=== PATIENT | female | born 1965 | race Caucasian/White ===

== ENCOUNTER 2023-12-19 14:44 | Emergency (ER) | payer OTHER, SELFPAY ==
[2023-12-19 14:54] LABS: Glucose - Point of Care 180 mg/dl (70-99)
[2023-12-19 15:00] VITALS: BP 104/58
[2023-12-19 15:16] VITALS: BMI 29.1
[2023-12-19 15:36] LABS: % Basophils 0.9 % (0-2); % Immature Granulocytes 0.2 % (0-0.5); % Lymphocytes 37.4 % (20.5-51.1); % Neutrophils 45.5 % (42.2-75.2); Absolute Eosinophils 0.2 10^3/uL (0-0.7); Absolute Lymphocytes 1.7 10^3/uL (1.2-3.4); Absolute Monocytes 0.5 10^3/uL (0.1-0.6); Absolute Neutrophils 2.1 10^3/uL (1.4-6.5); Hematocrit 27.7 % (37.0-47.0); Hemoglobin 9.1 g/dL (12.0-16.0); Mean Corp Hgb Conc. 32.9 g/dL (33.0-37.0); Mean Corpuscular Volume 82.2 fL (81.0-99.0); Mean Platelet Volume 10.9 fL (7.4-10.4); Nucleated Red Blood Cells % 0 %; Platelet Count 264 10^3/uL (130-400); Red Blood Cell Count 3.37 10^6/uL (4.20-5.40); Red Cell Dist. Width 13.6 % (11.5-14.5); White Blood Cell Count 4.6 10^3/uL (4.8-10.8)
--- NOTE | 2023-12-19 15:40 | ED.GENMED ---
History of Present Illness
General
Chief Complaint: Dizziness
Time Seen by Provider: 12/19/23 15:07
Travel History
Have you had any contact with someone who has COVID-19?: No
Do you have any symptoms of coronavirus? Fever > 100 degrees, chills, cough, shortness of breath, sore throat, loss of taste or smell, muscle aches, or headache?: No
History of Present Illness
History of Present Illness:
58-year-old female presents to the emergency department for evaluation of dizziness and exertional shortness of breath ongoing for the past 2 to 3 days. States she is felt short of breath for more than the past week with any degree of exertion.
She denies any shortness of breath or chest pain at rest, denies any vision changes, headaches, nausea, or vomiting. She notes that last week her valsartan dosage was cut in half due to low normal blood pressures presuming this was the cause
however symptoms persist. Denies any black or bloody bowel movements
Past History
Past History
ED Past Medical History: IDDM
ED Past Surgical History: None
Patient has exhibited threatening behavior?: No
Social History
Tobacco: Non-smoker
Personal:
Living: with family
Review of Systems
Review of Systems
Allergies reviewed?: Yes
All Other Systems: ROS reviewed and negative except as documented in HPI and ROS
Phy Exam
Physical Exam
Physical Exam:
GEN: Well appearing, NAD, WDWN
HEENT: Oral mucosa moist, no scleral icterus, no nasal congestion
Cardiac: Regular rate and rhythm, no murmurs
Lung: No respiratory distress, no tachypnea, lungs clear to auscultation bilaterally
Rectal: Brown stool in rectal vault heme-negative
MSK: No gross deformity or injuries
Skin: Good color, no pallor or jaundice, no rashes
Neuro: AO x3; CN II-XII grossly intact. BUE strength 5/5 in all mcgrath, sensation intact and symmetric. BLE strength 5/5 in all mcgrath, sensation intact and symmetric
Psych: Calm, cooperative
Course
Orders/Labs/Results
Orders:
Orders
12/19/23 14:46
EKG [Electrocardiogram (*1)] Urgent
Reason for Study: Vertigo / Dizzy
EKG- Treatment ONCE
12/19/23 15:18
CR Chest - 2 Views Urgent
Comment:
Reason For Exam: SOB
12/19/23 15:28
Complete Blood Count/With Diff Urgent
Comprehensive Metabolic Panel Urgent
Ferritin Urgent
Iron Urgent
Total Iron Binding Urgent
12/19/23 16:04
Add On- LAB Urgent
Tests Added?: ferritin, TIBC, iron
Abnormal Lab Results
12/19/23 12/19/23
14:53 15:28
WBC 4.6 L 10^3/uL
(4.8-10.8)
RBC 3.37 L 10^6/uL
(4.20-5.40)
Hgb 9.1 L g/dL
(12.0-16.0)
Hct 27.7 L %
(37.0-47.0)
MCHC 32.9 L g/dL
(33.0-37.0)
MPV 10.9 H fL
(7.4-10.4)
Monocytes % 11.0 H %
(1.7-9.3)
BUN 24 H mg/dl
(7-17)
Glucose 176 H mg/dl
(70-99)
% Saturation 9 L %
(20-50)
Alkaline Phosphatase 145 H U/L
(38-126)
POC Glucose 180 H mg/dl
(70-99)
12/19/23 15:28
12/19/23 15:28
Vital Signs
Initial and Last Documented VS:
Initial Vital Signs
Temp Pulse Resp Pulse Ox
98.8 F 79 18 100
12/19/23 14:45 12/19/23 14:45 12/19/23 14:45 12/19/23 14:45
Last Documented Vital Signs
Temp Pulse Resp BP Pulse Ox
98.8 F 81 13 121/75 97
12/19/23 14:45 12/19/23 17:00 12/19/23 17:00 12/19/23 17:00 12/19/23 17:00
MDM/Problems Addressed
MDM/Problems Addressed:
Do not have any access to most recent labs for the patient however by comparison to 9 years prior she has significant degree of anemia with a hemoglobin of 9.1. She does have heme-negative stool. This may be the cause of the patient's symptoms
however cannot discount the low normal blood pressures as well. Will maintain her current valsartan dosage, will start the patient on iron supplementation, TIBC and iron concentration send at time of discharge for outpatient follow-up purposes.
Recommend primary care and hematology follow-up
*Critical Care Note
Total Time (30-74mins, 75-104mins- exclusive of procedures): Not Applicable
ED Attending Note
-
Portions of this chart may have been created with voice recognition software.� Occasional wrong word or��sound alike� substitutions may have occurred due to the inherent limitations of voice recognition software.
Discharge Plan
Departure
Patient Disposition: Home (Routine Discharge)
Date of Disposition: 12/19/23
Time of Disposition: 16:27
Patient with high blood pressure during this ER visit?: No
Discharge Problem:
Symptomatic anemia
Instructions: Anemia, Possibly From Low Iron, Adult ED
Prescriptions:
New
ferrous sulfate [Feosol] 325 mg (65 mg iron) tablet
325 mg PO BID Qty: 60 0RF
No Action
rabies vacc,human diploid (PF) [Imovax Rabies Vaccine (PF)] 1 ML recon soln
1 ml IM NOW Qty: 3 0RF
Rx Instructions:
03/01, 03/06, 03/13
insulin glargine [Lantus U-100 Insulin] 1,000 UNITS/10 ML solution
30 unit SQ DAILY
valsartan 80 MG tablet
80 mg PO DAILY
pravastatin 10 MG tablet
10 mg PO DAILY
insulin aspart U-100 [Novolog U-100 Insulin aspart] 1,000 UNITS/10 ML solution
6 unit SQ PRN PRN (Reason: sliding scale)
Patient Comments:
6-8 unit/day sliding scale
Referrals:
Sarina Fuller MD [Family Provider] -
Daniele Siemon MD [Active] -
Interventions
Interventions:
*Risk Screen - Suicide Last Done: 12/19/23 15:16
*General Assessment Last Done: 12/19/23 15:16
*Neglect/Abuse Screening Last Done: 12/19/23 15:16
ED- Fall Risk Assessment Last Done: 12/19/23 15:16
*ED COVID-19 Vaccine History Last Done: 12/19/23 15:16
*Nursing Disposition Last Done: 12/19/23 17:13
ED- Neurological Assessment Last Done: 12/19/23 15:51
ED- Cardiac Assessment Last Done: 12/19/23 17:13
Discharge Date and Time
Discharge Date/Time: 12/19/23 17:14
Print Language: CZECH
[2023-12-19 15:51] LABS: ALT (SGPT) 16 U/L (0-35); AST (SGOT) 23 U/L (14-36); Albumin 4.1 g/dl (3.5-5.0); Alkaline Phosphatase 145 U/L (38-126); Blood Urea Nitrogen 24 mg/dl (7-17); Calcium 9.3 mg/dl (8.4-10.2); Carbon Dioxide 30 mmol/L (22-30); Chloride 101 mmol/L (98-107); Estimated Creatinine Clearance 73 ml/min; Glucose 176 mg/dl (70-99); Potassium 4.2 mmol/L (3.5-5.1); Sodium 137 mmol/L (135-145); Total Bilirubin 0.3 mg/dl (0.2-1.3); Total Protein 6.6 g/dl (6.3-8.2); eGFR > 60.00
[2023-12-19 16:17] VITALS: BP 128/64
[2023-12-19 16:21] LABS: Iron 44 ug/dl (37-170)
[2023-12-19 16:31] LABS: Percent Saturation 9 % (20-50); Total Iron Binding Capacity 446 ug/dl (265-497)
[2023-12-19 17:00] VITALS: BP 121/75
[2023-12-19 18:22] LABS: Ferritin 7.4 ng/ml (11.1-264.0)
== END 2023-12-19 17:14 | disposition home or self-care (01) ==
LOC: EMR 14:44
PROVIDERS: EMERGENCY PHYSICIAN Emergency Medicine; FAMILY PHYSICIAN Family Medicine
DX: D64.9 Anemia, unspecified (principal); E11.9 Type 2 diabetes mellitus without complications
CPT/HCPCS: 99283; 71046; 80053; 82728; 82962; 83540; 83550; 85025; 93005

== ENCOUNTER → 2024-02-18 09:29 | Outpatient (REF) | payer OTHER, SELFPAY | LOC: WDC 09:29 | PROVIDERS: ATTENDING PHYSICIAN Family Medicine | DX: Z12.31 Encounter for screening mammogram for malignant neoplasm of breast (principal) | CPT/HCPCS: 77063; 77067 ==

== ENCOUNTER → 2024-03-07 06:31 | Day surgery (SDC) | payer OTHER, SELFPAY ==
[2024-03-07 09:10] LABS: Glucose - Point of Care 117 mg/dl (70-99)
== END ==
LOC: GI 06:31
PROVIDERS: ATTENDING PHYSICIAN Internal Medicine; FAMILY PHYSICIAN Family Medicine
DX: K64.9 Unspecified hemorrhoids (principal); D50.9 Iron deficiency anemia, unspecified; D12.3 Benign neoplasm of transverse colon; K44.9 Diaphragmatic hernia without obstruction or gangrene; K31.89 Other diseases of stomach and duodenum; K29.50 Unspecified chronic gastritis without bleeding
CPT/HCPCS: 43239; 45380; 88305; 82962; 88342

== ENCOUNTER → 2024-09-27 07:28 | Outpatient (REF) | payer OTHER, SELFPAY | LOC: RAD 07:28 | PROVIDERS: ATTENDING PHYSICIAN Family Medicine | DX: M79.89 Other specified soft tissue disorders (principal) | CPT/HCPCS: 76882 ==

== ENCOUNTER → 2024-10-16 12:59 | Outpatient (REF) | payer OTHER, SELFPAY | LOC: HWRAD 12:59 | PROVIDERS: ATTENDING PHYSICIAN Obstetrics & Gynecology; FAMILY PHYSICIAN Family Medicine | DX: N95.0 Postmenopausal bleeding (principal) | CPT/HCPCS: 76830; 76856 ==

== ENCOUNTER 2024-11-29 06:18 | Day surgery (SDC) | payer OTHER, SELFPAY ==
[2024-11-23 08:59] LABS: % Basophils 0.5 % (0-2); % Eosinophils 4.8 % (0-6); % Immature Granulocytes 0.2 % (0-0.5); % Lymphocytes 39.2 % (20.5-51.1); % Monocytes 9.5 % (1.7-9.3); % Neutrophils 45.8 % (42.2-75.2); Absolute Eosinophils 0.3 10^3/uL (0-0.7); Absolute Lymphocytes 2.4 10^3/uL (1.2-3.4); Absolute Monocytes 0.6 10^3/uL (0.1-0.6); Absolute Neutrophils 2.7 10^3/uL (1.4-6.5); Hematocrit 36.2 % (37.0-47.0); Hemoglobin 12.9 g/dL (12.0-16.0); Mean Corp Hgb Conc. 35.6 g/dL (33.0-37.0); Mean Corpuscular Hgb 30.6 pg (27.0-31.0); Mean Platelet Volume 10.9 fL (7.4-10.4); Nucleated Red Blood Cells % 0 %; Platelet Count 259 10^3/uL (130-400); Red Blood Cell Count 4.21 10^6/uL (4.20-5.40); Red Cell Dist. Width 11.9 % (11.5-14.5)
[2024-11-23 13:22] VITALS: BMI 25.5
[2024-11-23 13:55] LABS: ALT (SGPT) 30 U/L (0-35); AST (SGOT) 40 U/L (14-36); Albumin 4.7 g/dl (3.5-5.0); Alkaline Phosphatase 119 U/L (38-126); Blood Urea Nitrogen 25 mg/dl (7-17); Calcium 9.3 mg/dl (8.4-10.2); Carbon Dioxide 29 mmol/L (22-30); Chloride 101 mmol/L (98-107); Estimated Creatinine Clearance 54 ml/min; Glucose 99 mg/dl (70-99); Potassium 4.4 mmol/L (3.5-5.1); Sodium 140 mmol/L (135-145); Total Bilirubin 0.5 mg/dl (0.2-1.3); Total Protein 7.1 g/dl (6.3-8.2); eGFR > 60.00
[2024-11-29] VITALS (9 sets, daily range): BP systolic 124–163; BP diastolic 57–74; BMI 25.5
[2024-11-29 11:06] LABS: Glucose - Point of Care 135 mg/dl (70-99)
[2024-11-29] MEDS: TYLENOL 1000 MG PO (11:10)
[2024-11-29] MEDS: NEURONTIN 100 MG PO (11:10)
[2024-11-29] MEDS: NORMOSOL-R/PLASMALYTE-A 1000 IV (11:11)
[2024-11-29 12:32] LABS: Glucose - Point of Care 119 mg/dl (70-99)
--- NOTE | 2024-11-29 13:14 | W.IMMPOSTOP ---
Surgical Immed Post Op Note
-
Primary Surgeon: Sarah Motta DO
Assisting Surgeon: none
Pre-op Diagnosis: Postmenopausal bleeding, endometrial mass
Post-op Diagnosis: same, endometrial polyp x2
Procedure Performed: hysteroscopy D&C polypectomy
Anesthesia Type: general LMA
Specimen / Cultures:1. endocervical curettings 2, endometrial curettings and resected polyps
Estimated Blood Loss: 2ml
Fluid deficit 75mL NSS
Complications: none
Operative Findings: Uterus sounded to 9 cm, endometrial polyps noted, bilateral tubal ostia seen.
Counts correct times 2.
Stable to recovery.
== END 2024-11-29 15:00 | disposition home or self-care (01) ==
LOC: SDS 06:18
PROVIDERS: ATTENDING PHYSICIAN Obstetrics & Gynecology; FAMILY PHYSICIAN Family Medicine
DX: N84.0 Polyp of corpus uteri (principal); N80.03 Adenomyosis of the uterus; D25.9 Leiomyoma of uterus, unspecified; N95.0 Postmenopausal bleeding
CPT/HCPCS: 58558; 88305; 36415; 80053; 82962; 85025; 86850; 86900; 86901; 93005

== ENCOUNTER → 2025-03-09 14:46 | Outpatient (REF) | payer OTHER, SELFPAY | LOC: WDC 14:46 | PROVIDERS: ATTENDING PHYSICIAN Family Medicine | DX: Z12.31 Encounter for screening mammogram for malignant neoplasm of breast (principal) | CPT/HCPCS: 77063; 77067 ==

== ENCOUNTER → 2025-04-26 08:57 | Outpatient (REF) | payer OTHER, SELFPAY | LOC: WDC 08:57 | PROVIDERS: ATTENDING PHYSICIAN Student in an Organized Health Care Education/Training Program; FAMILY PHYSICIAN Family Medicine | DX: N64.59 Other signs and symptoms in breast (principal) | CPT/HCPCS: 76642 ==

== ENCOUNTER → 2025-07-16 09:18 | Outpatient (REF) | payer OTHER, SELFPAY | LOC: MRI 3T 09:18 | PROVIDERS: ATTENDING PHYSICIAN Surgery; FAMILY PHYSICIAN Family Medicine | DX: N64.59 Other signs and symptoms in breast (principal) | CPT/HCPCS: 77049; A9585 ==